=== PATIENT | male | born 1965 | race Caucasian/White ===

== ENCOUNTER → 2016-06-08 | Outpatient (CLI) | payer MEDICARE ==
[2016-06-08 13:55] LABS: BUN/CREATININE RATIO 18 (0-10)
== END ==
LOC: LAB 12:49
PROVIDERS: Family Medicine
DX: E78.2 Mixed hyperlipidemia (principal)
CPT/HCPCS: 36415; 80053; 80061; 83036

== ENCOUNTER 2016-06-28 15:27 | Emergency (ER) | payer MEDICARE ==
[2016-06-28 18:40] LABS: RED BLOOD COUNT 5.64 M/UL (4.20-5.50); WHITE BLOOD COUNT 10.3 K/UL (4.5-11.0)
[2016-06-28 19:05] LABS: BUN/CREATININE RATIO 17 (0-10)
== END 2016-06-28 20:05 | disposition home or self-care (01) ==
LOC: ER1 15:27
PROVIDERS: Specialist/Technologist Athletic Trainer
DX: I10 Essential (primary) hypertension (principal); E11.65 Type 2 diabetes mellitus with hyperglycemia; Z79.4 Long term (current) use of insulin; Z79.84 Long term (current) use of oral hypoglycemic drugs; Z79.899 Other long term (current) drug therapy
CPT/HCPCS: 36415; 71010; 80053; 81001; 82550; 82553; 83874; 84484; 85025; 93005; 99284

== ENCOUNTER 2020-04-27 08:16 | Observation (INO) | payer MEDICARE, OTHER ==
[~2020-04-27] VITALS: Ht 170.2 cm; Wt 88.5 kg
[~2020-04-27 08:16] MED LIST: CARTIA XT180 MG PO; CLONIDINE HCL0.3 MG PO; CRESTOR40 MG PO; FISH OIL + D31 EACH PO; FOLIC ACID 1 MG1 MG PO; GLIPIZIDE5 MG PO; LISINOPRIL40 MG PO; LOPRESSOR 25 MG25 MG PO; METFORMIN HCL1000 MG PO; NITROGLYCERIN0.4 MG SL; NOVOLIN N100 UNIT/1 SQ; NOVOLIN R100 UNIT/1 INJ; OZEMPIC1 MG/0.75 SQ; SPIRONOLACTONE1 EACH PO
[2020-04-27 08:44] LABS: HEMOGLOBIN 17.1 gm/dl (14.0-17.5); RED BLOOD COUNT 5.87 M/UL (4.20-5.50); WHITE BLOOD COUNT 13.3 K/UL (4.5-11.0)
[2020-04-27 09:23] LABS: BUN/CREATININE RATIO 28 (0-10)
[2020-04-27] MEDS ORDERED: LOVASTATIN20 MG PO (12:51)
[2020-04-27] MEDS ORDERED: ASPIRIN EC81 MG PO (12:52)
[2020-04-28 04:33] LABS: WHITE BLOOD COUNT 11.8 K/UL (4.5-11.0)
[2020-04-28 04:43] LABS: HEMOGLOBIN 14.8 gm/dl (14.0-17.5); RED BLOOD COUNT 5.26 M/UL (4.20-5.50)
[2020-04-28] MEDS ORDERED: HUMALOG 10100 UNITS/ SC (10:32)
[2020-04-28] MEDS ORDERED: GLUTOSE 1537.5 GM PO (10:32)
[2020-04-28] MEDS ORDERED: LISINOPRIL10 MG PO (10:32)
[2020-04-28] MEDS ORDERED: GLUCAGEN1 MG/1 ML IM (10:32)
[2020-04-28] MEDS ORDERED: GLUCOPHAGE 500500 MG PO (10:32)
== END 2020-04-28 16:00 | disposition home or self-care (01) ==
LOC: ER1 08:16 → M/S 11:02 → CDU 11:02 → M/S 11:02
PROVIDERS: Emergency Medicine; Physician Assistant Medical; ADMIT Internal Medicine
DX: E11.649 Type 2 diabetes mellitus with hypoglycemia without coma (principal); E87.6 Hypokalemia; I10 Essential (primary) hypertension; E78.5 Hyperlipidemia, unspecified; R77.8 Other specified abnormalities of plasma proteins; R94.31 Abnormal electrocardiogram [ECG] [EKG]; Z87.891 Personal history of nicotine dependence; Z20.822 Contact with and (suspected) exposure to COVID-19; Z83.3 Family history of diabetes mellitus; Z82.49 Family history of ischemic heart disease and other diseases of the circulatory system; Z79.4 Long term (current) use of insulin; Z79.82 Long term (current) use of aspirin; Z79.899 Other long term (current) drug therapy
CPT/HCPCS: ECHO; 36415; 70450; 70551; 71045; 80048; 80053; 80061; 80307; 81001; 82550; 82553; 82565; 82962; 83690; 83735; 83874; 84439; 84443; 84484; 85025; 85027; 93005; 93306; 93880; 96372; 96374; 96375; 99285; G0378; J1650; J7030; U0002

== ENCOUNTER → 2021-10-27 | Outpatient (CLI) | payer MEDICARE ==
[~2021-10-27] MED LIST changes: +ASPIRIN EC81 MG PO; +GLUCAGEN1 MG/1 ML IM; +GLUCOPHAGE 500500 MG PO; +GLUTOSE 1537.5 GM PO; +HUMALOG 10100 UNITS/ SC; +LISINOPRIL10 MG PO; +LOVASTATIN20 MG PO
[2021-10-27 09:28] LABS: HEMOGLOBIN 14.1 gm/dl (14.0-17.5); RED BLOOD COUNT 4.76 M/UL (4.20-5.50); WHITE BLOOD COUNT 9.6 K/UL (4.5-11.0)
[2021-10-27 09:59] LABS: BUN/CREATININE RATIO 34 (0-10)
== END ==
LOC: LAB 08:12
PROVIDERS: Family Medicine
DX: Z12.5 Encounter for screening for malignant neoplasm of prostate (principal); E78.2 Mixed hyperlipidemia; E11.65 Type 2 diabetes mellitus with hyperglycemia; Z79.899 Other long term (current) drug therapy
CPT/HCPCS: 36415; 80053; 80061; 82043; 82570; 82607; 83735; 84443; 85027; G0103